=== PATIENT | male | born 1950 | race Caucasian/White ===

== ENCOUNTER 2018-12-23 17:08 | Emergency (ER) | payer OTHER ==
[~2018-12-23] VITALS: Ht 177.8 cm; Wt 93.0 kg
[2018-12-23] MEDS ORDERED: TYLENOL EXTRA500 MG PO (17:26)
[2018-12-23] MEDS ORDERED: NORVASC5 MG PO (17:27)
[2018-12-23] MEDS ORDERED: ASPIR 8181 MG PO (17:27)
[2018-12-23] MEDS ORDERED: LIPITOR 20 MG T20 M1 PO (17:27)
[2018-12-23] MEDS ORDERED: CLONAZEPAM 1 MG1 M1 PO (18:11)
[2018-12-23] MEDS ORDERED: PLAVIX 75 MG TA75 M1 PO (18:11)
[2018-12-23] MEDS ORDERED: COREG25 MG PO (18:11)
[2018-12-23] MEDS ORDERED: FLONASE 0.05%50 MCG NASAL (18:12)
[2018-12-23] MEDS ORDERED: APAP/CODEINE ELI5 M1 PO (18:12)
[2018-12-23] MEDS ORDERED: CO Q-10100 MG PO (18:12)
[2018-12-23] MEDS ORDERED: IRON325 PO (18:12)
[2018-12-23] MEDS ORDERED: GABAPENTIN 100100 MG PO (18:13)
[2018-12-23] MEDS ORDERED: SENNA8.6 MG PO (18:13)
[2018-12-23] MEDS ORDERED: PROTONIX40 M1 PO (18:13)
[2018-12-23] MEDS ORDERED: NITROGLYCERIN0.4 MG SUBLING (18:13)
[2018-12-23] MEDS ORDERED: IMDUR 30 MG TAB30 M1 PO (18:13)
[2018-12-23] MEDS ORDERED: TRAZODONE 150150 M1 PO (18:13)
[2018-12-23] MEDS ORDERED: RANEXA500 MG PO (18:13)
[2018-12-23] MEDS ORDERED: UNICOMPLEX M TA1 TA1 PO (18:14)
[2018-12-23] MEDS ORDERED: VITAMIN B-12500 MCG PO (18:14)
[2018-12-23 18:33] VITALS: BP 110/71
== END 2018-12-23 18:35 | disposition home or self-care (01) ==
LOC: ER 17:08
DX: S61.412A Laceration without foreign body of left hand, initial encounter (principal); I25.2 Old myocardial infarction; Z88.5 Allergy status to narcotic agent; Z88.8 Allergy status to other drugs, medicaments and biological substances; Z95.1 Presence of aortocoronary bypass graft; W26.0XXA Contact with knife, initial encounter; Y93.89 Activity, other specified; Y92.89 Other specified places as the place of occurrence of the external cause; Y99.8 Other external cause status